=== PATIENT | male | born 1955 ===

== ENCOUNTER → 2019-02-22 | Day surgery (SDC) | payer BC ==
[~2019-02-22] MED LIST: Etomidate 20 mg/10ml Inj IV ONE; Lactated Ringer's 500 ML IV ONE; Midazolam 2 MG/2 ML VIAL ONE; Propofol 10 mg/ml Inj (20 ML) ONE
[2019-02-22 08:02] VITALS: BMI 37.7
[2019-02-22 09:38] VITALS: RESP 20; TEMP 98; O2SAT 97
[2019-02-22 09:56] VITALS: BP 110/55; PULSE 84
== END | disposition home or self-care (01) ==
LOC: H.ENDO 07:13
PROVIDERS: ATTEND Internal Medicine Gastroenterology
DX: Z86.010 Personal history of colon polyps (principal); K64.8 Other hemorrhoids
CPT/HCPCS: 45378; J2001; J2250; J2704; J7120